=== PATIENT | female | born 1990 | race Caucasian/White ===

== ENCOUNTER 2022-02-16 20:18 | Emergency (ER) | payer SELFPAY ==
[~2022-02-16] VITALS: Ht 157.5 cm; Wt 65.8 kg
[2022-02-16 20:18] VITALS: BP 146/80
--- NOTE | 2022-02-16 20:42 | NUR ---
PT FREDY ALS. TAKEN T BED 8
--- NOTE | 2022-02-16 20:45 | NUR ---
31 Y.O. F FREDY FOUND IN [employer] , SHE WANTS TO RUN IN TRAFFIC, ON SUICIDAL IDEATION TO KILL HER SELF. PT DENIES PAIN AT THIS TIME. A&OX2, VITALS WNL, NO SOB, SKIN INTACT, NO N/V/D AND PT IS IN A HOSPITAL GOWN. NKA PMH:SCHIZOPHRENIA
[2022-02-16 21:04] LABS: BASOPHILS % (AUTO) 0.2 % (0.0-2.0); EOSINOPHILS # (AUTO) 0.1 K/uL (0-0.4); EOSINOPHILS % (AUTO) 1.6 % (0.0-4.0); HEMATOCRIT 39.8 % (36-48); HEMOGLOBIN 13.2 g/dL (12.0-16.0); LYMPHOCYTES # (AUTO) 2.4 K/uL (2.5-16.5); LYMPHOCYTES % (AUTO) 26.6 % (20.5-51.1); MEAN CORPUSCULAR HEMOGLOBIN 28 pg (27-31); MEAN CORPUSCULAR HGB CONC 33 g/dL (33-37); MEAN CORPUSCULAR VOLUME 85.5 fL (80-94); MONOCYTES # (AUTO) 0.6 K/uL (0.8-1.0); NEUTROPHILS # (AUTO) 5.8 K/uL (1.8-7.7); NEUTROPHILS % (AUTO) 64.6 % (42.2-75.2); PLATELET COUNT (AUTO) 211 K/uL (140-450); RED BLOOD CELL COUNT(AUTO) 4.65 MIL/uL (4.20-5.40); RED CELL DISTRIBUTION WIDTH 21.8 % (11.6-13.7); WHITE BLOOD COUNT (AUTO) 8.9 K/uL (4.8-10.8)
[2022-02-16 21:26] LABS: ALBUMIN 3.8 g/dL (3.4-5.0); ANION GAP 13.6 (8-16); ASPARTATE AMINOTRANSFERASE 39 U/L (15-37); CHLORIDE 105 mmol/L (98-107); CREATININE 1.1 mg/dL (0.6-1.3); GFR ARICAN-AMERICAN 75 mL/min (>90); GLUCOSE 104 mg/dL (74-106); POTASSIUM 3.6 mmol/L (3.5-5.1); SODIUM SERUM 141 mmol/L (136-145); TOTAL BILIRUBIN 0.7 mg/dL (0.0-1.0); UREA NITROGEN, BLOOD 15 mg/dL (7-18)
[2022-02-16 21:34] LABS: SALICYLATE < 2.8 mg/dL (2.8-20.0)
[2022-02-16 21:37] LABS: ACETAMINOPHEN < 0.5 ug/ml (10-30)
--- NOTE | 2022-02-16 22:40 | NUR ---
TELEPYCH REQUEST INITIATED PER DR. PABON
--- NOTE | 2022-02-16 22:44 | NUR ---
PT MOVED TO ER BED 5
[2022-02-16 23:23] LABS: APPEARANCE,URINE CLEAR (CLEAR); BILIRUBIN,URINE 1+ (NEGATIVE); BLOOD, URINE NEGATIVE (NEGATIVE); COLOR,URINE DARK YELLOW (YELLOW); LEUKOCYTE ESTERASE ,URINE NEGATIVE (NEGATIVE); NITRITE, URINE NEGATIVE (NEGATIVE); UGLUCOSE NEGATIVE (NEGATIVE)
[2022-02-16 23:34] LABS: BARBITURATE, URINE NEGATIVE ng/ml (NEG <=200); BENZODIAZEPINE, URINE NEGATIVE ng/mL (NEG <=200); CANNABINOID, URINE POSITIVE ng/mL (NEG <=50); COCAINE, URINE NEGATIVE ng/mL (NEG <=300); OPIATE, URINE NEGATIVE ng/mL (NEG <=2000); PHENCYCLIDINE SCREEN,URINE NEGATIVE ng/mL (NEG <=25)
[2022-02-17 05:30] VITALS: BP 92/48
--- NOTE | 2022-02-17 05:30 | NUR ---
Patient discharged with v/s stable. Written and verbal after care instructions given and explained. Patient verbalized understanding. Ambulatory with steady gait. All questions addressed prior to discharge. Advised to follow up with PMD.
--- NOTE | 2022-02-17 05:34 | NUR ---
CALLED PATIENTS FRIEND JASMINE , TO PICK HER UP NO ANSWER AND LEFT DETAILED MESSAGE
== END 2022-02-17 05:30 | disposition home or self-care (01) ==
LOC: MED 20:18
DX: R45.851 Suicidal ideations (principal); Z20.822 Contact with and (suspected) exposure to COVID-19; F19.10 Other psychoactive substance abuse, uncomplicated
CPT/HCPCS: 36415; 80053; 80305; 81003; 85025; 87426; 99285; G0480; G0482; 99283